=== PATIENT | male | born 1990 | race Caucasian/White ===

== ENCOUNTER 2022-01-04 07:05 | Emergency (ER) | payer OTHER ==
[~2022-01-04] VITALS: Ht 170.2 cm; Wt 68.0 kg
--- NOTE | 2022-01-04 07:25 | NUR ---
PT IS IN ROOM #2B. DR PADILLA EVALUATED THE PT.
--- NOTE | 2022-01-04 07:48 | NUR ---
PT DENIES SUICIDAL IDIATION. PT WAS D/C'd TO HOME BY DR PERSON. D/C INSTRUCTIONS GIVEN TO THE PT BY DR PADILLA.
[2022-01-04 07:50] VITALS: BP 132/75
== END 2022-01-04 07:56 | disposition home or self-care (01) ==
LOC: ER 07:08
DX: F15.10 Other stimulant abuse, uncomplicated (principal); Z59.00 Homelessness unspecified
CPT/HCPCS: A4663